=== PATIENT | male | born 1985 | race Caucasian/White ===

== ENCOUNTER 2022-10-05 15:11 | Outpatient (CLI) | payer OTHER, SELFPAY ==
[2022-10-05 17:47] LABS: Albumin* 5.3 g/dL (3.3-5.0); Chloride* 100 mmol/L (96-114); Potassium* 3.9 mmol/L (3.6-5.1); Sodium* 137 mmol/L (135-149)
[2022-10-05 17:50] LABS: Alanine Aminotransferase* 123 U/L (4-50); Alkaline Phosphatase* 58 U/L (40-150); Aspartate Amino Transferase* 130 U/L (12-35); Bilirubin Total* 0.7 mg/dL (0.1-1.5); Blood Urea Nitrogen* 6 mg/dL (5-24); Carbon Dioxide* 27 mmol/L (20-32); Creatinine* 0.6 mg/dL (0.5-1.5); Estimated Glomerular Filt Rate 128 ml/min; Glucose* 100 mg/dL (60-115); Total Protein* 8.7 g/dL (6.0-8.3)
[2022-10-05 17:51] LABS: Calcium* 9.7 mg/dL (8.4-10.6)
== END 2022-10-05 15:12 | disposition home or self-care (01) ==
LOC: LONREF 15:15
PROVIDERS: PCP Family Medicine; Visit Provider Family Medicine
DX: I10 Essential (primary) hypertension (principal); F10.20 Alcohol dependence, uncomplicated
CPT/HCPCS: 80053

== ENCOUNTER 2022-12-08 15:32 | Outpatient (CLI) | payer OTHER, SELFPAY ==
--- NOTE | 2022-12-08 15:45 | CRLHL7_ITS ---
For Patients: As a result of the Century Cures Act, medical imaging exams and procedure reports are released immediately into your electronic medical record. You may view this report before your referring provider. If you have questions, please contact your health care provider. INDICATION: Low back pain. Sciatica. TECHNIQUE: Noncontrast MRI of the lumbar spine is performed in the usual fashion. No comparisons. FINDINGS: The overall stature, alignment and marrow signal lumbar spine is within normal limits. Conus is within normal limits. L1-2: Unremarkable. L2-3: Mild circumferential disk bulge results in no central canal narrowing or foraminal narrowing. L3-4: Mild right lateral disc bulge results in contact of the exiting right L3 nerve root laterally. No central canal or left foraminal narrowing. L4-5: Mild broad-based posterior disk bulge with endplate osteophyte results in mild bilateral foraminal with no central canal narrowing. L5-S1: Mild broad-based posterior disc bulge with a superimposed left lateral recess disc extrusion that extends approximately 7-8 mm beyond the posterior vertebral body margin and extends caudally a distance of 7 mm resulting in contact and compression of the traversing left S1 nerve root. Mild bilateral foraminal narrowing with no central canal narrowing. IMPRESSION: 1. Left lateral recess disc extrusion with caudal migration at L5-S1 resulting in severe left lateral recess narrowing and compression of the traversing left S1 nerve root with mild bilateral foraminal narrowing. 2. Mild bilateral L4-5 foraminal narrowing. 3. Right lateral disc bulge at L3-4 resulting in contact of the exiting right L3 nerve root laterally. Dictated by Quinten Lima MD @ 12/09/2022 1:34:04 PM (Electronically Signed)
== END 2022-12-08 15:33 | disposition home or self-care (01) ==
LOC: MRI 15:33
PROVIDERS: PCP Family Medicine; Visit Provider Family Medicine
DX: M54.50 Low back pain, unspecified (principal); M51.36 Other intervertebral disc degeneration, lumbar region; M51.26 Other intervertebral disc displacement, lumbar region; M54.32 Sciatica, left side
CPT/HCPCS: 72148